=== PATIENT | female | born 1995 | race Two or more races ===

== ENCOUNTER 2018-11-20 17:46 | Emergency (ER) | payer OTHER ==
[~2018-11-20] VITALS: Ht 165.1 cm; Wt 88.6 kg
[2018-11-20 18:19] LABS: BASOPHILS # (AUTO) 0.05 x10^3/uL (0-0.1); BASOPHILS % (AUTO) 0 % (0-1); EOSINOPHILS # (AUTO) 0.04 x10^3/uL (0-0.4); EOSINOPHILS % (AUTO) 0 % (1-7); LYMPHOCYTES # (AUTO) 2.42 x10^3/uL (1-3.4); LYMPHOCYTES % (AUTO) 20 % (22-44); MD NO; MEAN CORPUSCULAR HEMOGLOBIN 30.4 pg (27.0-34.8); MEAN CORPUSCULAR HGB CONC 34.5 g/dL (32.4-35.8); MEAN CORPUSCULAR VOLUME 88.1 fL (80-100); MONOCYTES # (AUTO) 0.67 x10^3/uL (0.2-0.8); MONOCYTES % (AUTO) 6 % (2-9); NEUTROPHILS # (AUTO) 8.75 x10^3/uL (1.8-6.8); NEUTROPHILS % (AUTO) 73 % (42-75); PLATELET COUNT 297 x10^3/uL (130-400); RED BLOOD COUNT 4.57 x10^6/uL (3.82-5.3)
--- NOTE | 2018-11-20 18:23 | NUR ---
PT ARRIVES TO ED WITH INCREASED URINATION FREQUENCY AND PAINFUL URINATION WITH FLANK PAIN BILATERALLY AND PELVIC PAIN. PT REPORTS HX OF UTI BUT THIS IS MUCH WORSE THAN NORMAL. PT DENIES ANY VAGINAL DC AT THIS TIME. PT REPORTS NO KNOWN PREGANCY OR UNPROTECTED SEX. PT UA SENT TO LAB. TO BEDSIDE FOR EVAL. PT ASKED TO PUT PT GOWN ON. AWAITING FURTHER ORDERS.
[2018-11-20 18:26] LABS: MICROSCOPIC AUTO
[2018-11-20 18:28] LABS: CULTURE INDICATED? YES
[2018-11-20] MEDS ORDERED: KETOROLAC 30 MG/1 ML IVPush ONE (18:30)
[2018-11-20] MEDS ORDERED: morphine SULFATE 10 MG/ML, 1ML IVPush ONE (18:30)
[2018-11-20] MEDS ORDERED: KETOROLAC 30 MG/1 ML ONE (18:30)
[2018-11-20] MEDS ORDERED: CEFTRIAXONE PMX 1GM/50ML 50 ML IV ONE (18:30)
[2018-11-20 18:31] LABS: ANION GAP 6 mmol/L (5-15); CALCIUM 8.8 mg/dL (8.5-10.1); CHLORIDE 105 mmol/L (98-107); CREATININE 0.92 mg/dL (0.55-1.02)
[2018-11-20] MEDS ORDERED: CEFTRIAXONE PMX 1GM/50ML 50 ML ONE (18:48)
[2018-11-20 18:55] VITALS: BP 117/80
--- NOTE | 2018-11-20 18:58 | NUR ---
BREAK RN: KEITH VIERA WAS AT BEDSIDE FOR RECHECK/EXPLANATION OF RESULTS AND POC. PT AND PT'S SIGNIFICANT OTHER VERBALIZED UNDERSTANDING OF POC. DENY ANY QUESTIONS AT THIS TIME. IV ACCESS ESTABLISHED. PT MEDICATED ORDERED FOR 8/10 ABD PAIN. PT AO X 4. SKIN PWD. RESP EVEN AND EQAUL. SIGNIFICANT OTHER AT BEDSIDE. PT AWARE THAT WE ARE WAITING FOR IV ABX TO FINISH AND THEN PT WILL BE DISCHARGED HOME. PT ON CONT BP AND O2 MONITORS. CALL LIGHT WITHIN REACH.
--- NOTE | 2018-11-20 19:18 | NUR ---
Patient/Caregiver given discharge instructions and they have confirmed that they understand the instructions. Patient ambulatory with steady gait.
== END 2018-11-20 20:08 | disposition home or self-care (01) ==
LOC: ED 20:04
DX: N10 Acute pyelonephritis (principal)
CPT/HCPCS: 36415; 80048; 81001; 82040; 84703; 85025; 87077; 87086; 87186; 96365; 96375; 99283; J0696; J1885

== ENCOUNTER 2020-05-31 16:22 | Emergency (ER) | payer SELFPAY ==
[~2020-05-31] VITALS: Ht 165.1 cm; Wt 100.6 kg
--- NOTE | 2020-05-31 17:27 | NUR ---
NO ANSWER TO TRIAGE.
--- NOTE | 2020-05-31 18:36 | NUR ---
to room at this time.
[2020-05-31 18:46] LABS: BASOPHILS % (AUTO) 0 % (0-1); EOSINOPHILS % (AUTO) 1 % (1-7); LYMPHOCYTES % (AUTO) 25 % (22-44); MEAN CORPUSCULAR HEMOGLOBIN 29.2 pg (27.0-34.8); MEAN CORPUSCULAR HGB CONC 33.4 g/dL (32.4-35.8); MONOCYTES % (AUTO) 8 % (2-9); NEUTROPHILS % (AUTO) 66 % (42-75); PLATELET COUNT 280 x10^3/uL (130-400); RED BLOOD COUNT 4.33 x10^6/uL (3.82-5.3); RED CELL DISTRIBUTION WIDTH 12.8 % (9.6-15.2)
[2020-05-31 18:47] LABS: MD NO
--- NOTE | 2020-05-31 19:00 | NUR ---
assumed care of pt. report from Keshia BARROS. pt is , and is here for S/O vaginal spotting today with mild low abd cramping. pt reports that she has only used 1 pantyliner at this time. no clots seen. pt denies urinary C/O, reports that she has some BRB per rectum earlier today. pt is currently resting on gurney in position of comfort. no family at bedside pt has had abs drawn and US completed. pt updated on POC.
--- NOTE | 2020-05-31 20:05 | NUR ---
pt made aware that urine sample needed. pt ambu;lated to BR to attempt sample. SO at bedside
[2020-05-31 20:30] LABS: MICROSCOPIC INDICATED
--- NOTE | 2020-05-31 20:55 | NUR ---
no changes. pt resting in position of comfort. no new c/o. awaiting test results
[2020-05-31 21:15] VITALS: BP 131/74
--- NOTE | 2020-05-31 21:47 | NUR ---
this pt was D/C by another RN
== END 2020-05-31 21:17 | disposition home or self-care (01) ==
LOC: ED 20:59
DX: O23.12 Infections of bladder in pregnancy, second trimester (principal); Z3A.15 15 weeks gestation of pregnancy
CPT/HCPCS: 36415; 76801; 81001; 84702; 85025; 86901; 87086; 99284